=== PATIENT | female | born 1965 | race Caucasian/White ===

== ENCOUNTER → 2019-12-10 15:18 | Outpatient (BNVA) | payer SELFPAY | PROVIDERS: Visit Provider Nurse Practitioner | DX: S69.91XA Unspecified injury of right wrist, hand and finger(s), initial encounter (principal); S62.396A Other fracture of fifth metacarpal bone, right hand, initial encounter for closed fracture; W01.0XXA Fall on same level from slipping, tripping and stumbling without subsequent striking against object, initial encounter | CPT/HCPCS: 73130 ==

== ENCOUNTER 2019-12-20 14:17 | Emergency (ER) | payer SELFPAY ==
[2019-12-20 14:26] VITALS: BMI 37.2
--- NOTE | 2019-12-20 14:31 | W.ED.EXTPRO ---
HPI - Extremity Problem General: Chief complaint: Extremity Injury, Upper Stated complaint: right hand/arm pain Time Seen by Provider: 12/20/19 14:29 Source: patient Mode of arrival: ambulatory Limitations: no limitations History of Present Illness: HPI Narrative: Patient comes in today for complaints of fracture to the proximal fifth metacarpal. Patient reports injury occurred on . Patient states that she had slipped and fell and caught herself injuring her hand. Patient was seen at urgent care and diagnosed with no fracture and thought she was going to get a follow-up appointment on after but never received a call. Patient came in today due to no contact from the urgent care office. Patient appears well. Patient appears in no acute distress. Review of Systems General: Reports: 10 or more systems reviewed and unremarkable except in HPI and below Musc: Reports: extremity pain (right hand) [facility] ED PFSH: Medical History (Updated 12/20/19 @ 15:23 by JOSE Jacob) Major depressive disorder, recurrent, in partial remission Social History (Updated 12/10/19 @ 15:09 by Joie Barksdale LPN) Smoking and tobacco status: never smoked Physical Exam Const: COMMON NORMALS: no acute distress and patient oriented x3 GENERAL APPEARANCE: cooperative HENMT: COMMON NORMALS: normocephalic and Normal external nose present HEAD & SCALP: normal to inspection and normocephalic NOSE: Normal external nose present Eye: GENERAL EYE: appearance normal, both eyes and all related structures Neck/C-Spine: COMMON NORMALS: full ROM Chest: COMMONS NORMALS: normal inspection of the chest Resp: COMMON NORMALS: normal respiratory effort EFFORT & INSPECTION: Yes able to speak in complete sentences Cardio: COMMON NORMALS: regular rate and regular rhythm RATE: regular rate RHYTHM: regular rhythm GI: COMMON NORMALS: non-tender Back/Pelvis: COMMON NORMALS: thoracic and lumbar spine normal to inspection Extremity: NARRATIVE EXTREMITY EXAM: Mild ecchymosis and swelling to the right dorsal hand. Patient has tenderness and swelling to the right proximal fifth metacarpal area, patient also has some mid forearm tenderness. Distal pulses and cap refill are intact. Neuro: COMMON NORMALS: patient oriented x3 and moves all extremities Psych: COMMON NORMALS: mental status grossly normal and cooperative Skin: COMMON NORMALS: no rashes or lesions noted GENERAL SKIN EXAM: no rashes or lesions noted Course Vital Signs: Vital signs: Vital Signs Temperature 98.6 F 12/20/19 14:35 Pulse Rate 96 12/20/19 14:35 Respiratory Rate 18 12/20/19 14:35 Blood Pressure 151/99 12/20/19 14:35 Pulse Oximetry 97 12/20/19 14:35 MDM - Extremity (Nontraumatic) MDM Narrative: Medical decision making narrative: Patient came in for reevaluation of fracture to the right hand. Patient had a splint placed on after a slip and fall injury. Exam notes normal cap refill to the distal fingers. Normal sensation. Some mild swelling and ecchymosis to the dorsal hand. X-ray of the extremity noted a fracture of the fifth metacarpal at the base. X-rays of the forearm were done due to the patient's complaint of pain in the mid forearm area no signs of fracture are noted there. Differential diagnosis included fracture, contusion, sprain. Reviewed exam with patient recommended continue splint and sling for comfort. Use Tylenol and ibuprofen for pain. Case management was consulted for referral to the orthopedics office. Orthopedics was contacted and they will contact the patient for appointment at the next available. Discharge Plan Discharge Patient Disposition: Home, Self-Care Clinical Impression: Other fracture of fifth metacarpal bone, right hand, initial encounter for closed fracture Condition: Stable Prescriptions: No Action fluoxetine [Prozac] 40 mg capsule 40 mg PO DAILY Qty: 30 RF: 2 Discharge Orders: Discharge Order (Routine); Ordered 12/20/19 Ordered By: Felipe Wolff Discharge Diet: Usual diet Discharge Activity: Increase activity as tolerated Patient Instructions: Hand Fracture (ED) Activity Restrictions/Additional Instructions: Keep splint clean and dry. Activity as tolerated. Use acetaminophen and ibuprofen for pain. Use ice or heat for further pain control. Follow-up with orthopedics. Case management has placed a referral and you should expect a call from the orthopedics office within the next 24 hours. If you do not receive a call by tomorrow afternoon contact the orthopedics office directly. Return to the ER for high fever or new concerns. Coding Level of Care Code ED Bankruptcy Legal Assistant for Christopher Fwjolene Exam Comprehensive
[2019-12-20 14:35] VITALS: BP 151/99; PULSE 96; RESP 18; TEMP 37; O2SAT 97
--- NOTE | 2019-12-20 14:36 | XR_ITS ---
WS: [id number] XR hand RT min 3V* [id number] REASON FOR EXAM: fracture FINDINGS: There is evidence of a fracture through the base of the fifth metacarpal. The distal interphalangeal joint suggest osteoarthritic changes. Review of the forearm shows a fracture of the proximal fifth metacarpal was present on that exam but not reported. XR/XR hand RT min 3V* [id number] IMPRESSION: Fracture base fifth metacarpal
--- NOTE | 2019-12-20 14:36 | XR_ITS ---
WS: [id number] XR forearm RT 2V [id number] REASON FOR EXAM: injury FINDINGS: The ulna and radius appear to be normal. There is no definite fractures or specific bone dyscrasias noted. There is no abnormal calcification or soft tissue masses. XR/XR forearm RT 2V [id number] IMPRESSION: Negative right forearm.
--- NOTE | 2019-12-20 15:47 | DCPLANNER ---
financial reporting manager was asked to schedule a follow up appointment for patient with ortho. financial reporting manager called the ortho clinic, spoke with Concetta, gave clinic patients information. financial reporting manager was told that patients information would be printed and reviewed. Clinic will call wrapper caser and patient with appointment information.
[2019-12-20 16:05] VITALS: BP 133/101; PULSE 78; RESP 16; O2SAT 98
--- NOTE | 2020-01-02 08:21 | DCPLANNER ---
sql manager called Pat at ortho to confirm that an appointment had been scheduled for patient. sql manager was told that an appointment had not been scheduled yet. Pat at the ortho clinic is looking into why an appointment has not been scheduled at this time, will speak with Lizette.
--- NOTE | 2020-01-02 15:34 | DCPLANNER ---
Patient had a follow up appointment scheduled for 01.02.20, patient did attend the appointment.
== END 2019-12-20 16:23 | disposition home or self-care (01) ==
LOC: ER 16:05
PROVIDERS: Emergency Provider Nurse Practitioner Family
DX: S62.396A Other fracture of fifth metacarpal bone, right hand, initial encounter for closed fracture (principal); W01.0XXA Fall on same level from slipping, tripping and stumbling without subsequent striking against object, initial encounter
CPT/HCPCS: 12345; 29125; 73090; 73130; 99282; 99283

== ENCOUNTER → 2020-01-02 15:24 | Outpatient (BNVA) | payer SELFPAY | PROVIDERS: Visit Provider Specialist | DX: S62.396A Other fracture of fifth metacarpal bone, right hand, initial encounter for closed fracture (principal); X58.XXXA Exposure to other specified factors, initial encounter | CPT/HCPCS: 73130 ==

== ENCOUNTER → 2020-01-16 15:07 | Outpatient (BNVA) | payer SELFPAY | PROVIDERS: Visit Provider Specialist | DX: S62.396A Other fracture of fifth metacarpal bone, right hand, initial encounter for closed fracture (principal); W19.XXXA Unspecified fall, initial encounter | CPT/HCPCS: 73130 ==

== ENCOUNTER → 2020-02-07 14:19 | Outpatient (BNVA) | payer SELFPAY | PROVIDERS: Visit Provider Specialist | DX: S62.396A Other fracture of fifth metacarpal bone, right hand, initial encounter for closed fracture (principal); X58.XXXA Exposure to other specified factors, initial encounter | CPT/HCPCS: 73130 ==

== ENCOUNTER → 2020-05-29 08:33 | Outpatient (BNVA) | payer OTHER, SELFPAY | PROVIDERS: Visit Provider Nurse Practitioner | DX: F33.41 Major depressive disorder, recurrent, in partial remission (principal) | CPT/HCPCS: 99213 ==

== ENCOUNTER 2020-06-30 11:19 | Outpatient (CLI) | payer OTHER, SELFPAY ==
--- NOTE | 2020-06-30 11:27 | MM_ITS ---
WS: [id number] Bilateral screening digital mammogram, 06/30/2020 Clinical Data: SCREENING Comparison: 05/07/2019, 05/23/2018, 04/20/2017, 04/08/2016. Findings: The breast parenchymal pattern shows heterogeneous density No spiculated masses or clustered calcific ations are seen. There are no secondary signs of carcinoma. There are lymph nodes in the right axilla . MM/[id number] Impression: 1. Negative bilateral mammogram unchanged. 2. Recommend annual screening mammograms. BIRADS: 1-Negative FOLLOW UP: 1 Year Follow-up The CAD photo checker was used.
== END 2020-06-30 11:20 | disposition home or self-care (01) ==
LOC: RADSHAW 11:22
PROVIDERS: Visit Provider Family Medicine
DX: Z12.31 Encounter for screening mammogram for malignant neoplasm of breast (principal)
CPT/HCPCS: 77067

== ENCOUNTER 2022-03-18 13:23 | Outpatient (CLI) | payer MEDICAID, SELFPAY ==
--- NOTE | 2022-03-18 13:29 | MM_ITS ---
WS: [id number] BILATERAL 3D TOMOSYNTHESIS DIGITAL SCREENING MAMMOGRAPHY WITH CAD CLINICAL INFORMATION: SCREENING HISTORY: Screening mammogram. No current complaints. COMPARISON: June 30, 2020 TECHNIQUE: Bilateral CC and MLO views. FINDINGS: The breasts are composed of heterogeneous fibroglandular density tissue, which can limit the detectio n of small underlying mass lesions. A few tiny incidental punctate calcifications. No suspicious mass , asymmetry, calcifications, or architectural distortion. No evidence of malignancy. MM/[place] [id number] IMPRESSION: BI-RADS: 2-Benign FOLLOW UP: 1 Year Follow-up Recommend return to annual screening mammography.
== END 2022-03-18 13:24 | disposition home or self-care (01) ==
PROVIDERS: PCP Family Medicine; Visit Provider Family Medicine
DX: Z12.31 Encounter for screening mammogram for malignant neoplasm of breast (principal)
CPT/HCPCS: 77063; 77067

== ENCOUNTER 2023-03-18 13:53 | Outpatient (CLI) | payer MEDICAID, SELFPAY ==
--- NOTE | 2023-03-18 14:11 | MM_ITS ---
WS: [id number] BILATERAL 3D TOMOSYNTHESIS DIGITAL SCREENING MAMMOGRAPHY WITH CAD CLINICAL INFORMATION: SCREENING HISTORY: Screening mammogram. LEFT breast pain and soreness COMPARISON: 2021 TECHNIQUE: Bilateral CC and MLO views. FINDINGS: The breasts are composed of heterogeneous fibroglandular density tissue, which can limit the detectio n of small underlying mass lesions. No suspicious mass, asymmetry, calcifications, or architectural d istortion. No evidence of malignancy. Punctate calcification LEFT breast. IMPRESSION: MM/[place] [id number] BI-RADS: 2-Benign FOLLOW UP: 1 Year Follow-up Recommend return to annual screening mammography.
== END 2023-03-18 13:54 | disposition home or self-care (01) ==
LOC: RAD 13:56 → MOBLMAM 14:10
PROVIDERS: PCP Family Medicine; Visit Provider Family Medicine
DX: Z12.31 Encounter for screening mammogram for malignant neoplasm of breast (principal)
CPT/HCPCS: 77063; 77067

== ENCOUNTER 2023-12-20 04:38 | Emergency (ER) | payer OTHER, MEDICAID, SELFPAY ==
[2023-12-20] VITALS (7 sets, daily range): BP systolic 126–162; BP diastolic 70–106; PULSE 65–73; RESP 16–20; TEMP 36.6; O2SAT 96–99; BMI 35.4
--- NOTE | 2023-12-20 04:43 | XRR_ITS ---
PROCEDURE INFORMATION: Exam: XR Chest Exam date and time: 12/20/2023 4:55 AM Age: 58 years old Clinical indication: Shortness of breath TECHNIQUE: Imaging protocol: Radiologic exam of the chest. Views: 1 view. COMPARISON: CR XR chest 1V [id number] 03/16/2017 1:38 PM FINDINGS: Lungs: Unremarkable. No consolidation. Pleural spaces: Unremarkable. No pleural effusion. No pneumothorax. Heart/Mediastinum: Unremarkable. No cardiomegaly. Bones/joints: Unremarkable. XR/XR chest 1V portable [id number] IMPRESSION: No acute findings.
--- NOTE | 2023-12-20 04:43 | ECG_ITS ---
[facility] Test Date: 2023-12-20 Pat Name: Cheryl San Department: Room: Gender: Female Surgical Consultant: : 1965 Requested By: Karine Santiago Order Number: [id number] Melissa MD: Trevor Medina M.D. Measurements Intervals [place] Rate: 60 P: 68 AR: 126 QRS: 60 QRSD: 86 T: 63 QT: 412 QTc: 413 Interpretive Statements SINUS RHYTHM Compared to ECG 03/16/2017 13:23:05 No significant changes Electronically Signed On 12-20-2023 7:24:25 CDT by Trevor Medina M.D. [email or web address]
[2023-12-20 05:08] LABS: Basophils # 0.1 10^3/uL (0.0-0.1); Basophils % 0.8 %; Eosinophils # 0.3 10^3/uL (0.0-0.8); Hematocrit 45.2 % (36-47); Lymphocytes # 2.1 10^3/uL (0.8-4.8); Lymphocytes % 24.6 %; Mean Corpuscular HGB Conc 33.6 g/dL (30-55); Mean Corpuscular Volume 92.2 fl (85-98); Mean Platelet Volume 11.3 fL (7.4-10.4); Monocytes # 0.8 10^3/uL (0.2-0.9); Monocytes % 9.9 %; Neutrophils # 5.06 10^3/uL (1.8-7.7); Neutrophils % 60.3 %; Nucleated Red Blood Cells % 0 %; Platelet Count 299 10^3/cmm (157-399); Red Cell Distribution Width 13.3 % (12.1-15.1)
--- NOTE | 2023-12-20 05:08 | ED_ITS ---
Documented by User: Karine Crowell MD 12/20/23 05:15 HPI - Abdominal Pain 2 General: Chief Complaint: Abdominal Pain Stated Complaint: flank pain Time Seen by Provider: 12/20/23 04:40 History of Present Illness: 58-year-old female who does not currentl y take any medications for chronic illnesses who presents the emergency room with bilateral lower chest/flank pain that radiates around to the front of her chest. She has had increased cough and some shortness of breath. Some sputum production. Says it hurts when she breathes and when she moves. This is been present for a couple of days now. No known fevers. No nausea or vomiting. No dysuria. No lower extremity swelling. No altered mental status. No focal motor deficits. Review of Systems 2 Narrative: Constitutional symptoms: Negative except as documented in HPI. Skin symptoms: Negative except as documented in HPI. Eye symptoms: Negative except as documented in HPI. ENMT symptoms: Negative except as documented in HPI. Respiratory symptoms: Negative except as documented in HPI. Cardiovascular symptoms: Negative except as documented in HPI. Gastrointestinal symptoms: Negative except as documented in HPI. Genitourinary symptoms: Negative except as documented in HPI. Musculoskeletal symptoms: Negative except as documented in HPI. Neurologic symptoms: Negative except as documented in HPI. Psychiatric symptoms: Negative except as documented in HPI. Endocrine symptoms: Negative except as documented in HPI. PFSH ED 2 PFSH: Medical History (Updated 12/20/23 @ 08:18 by Ethan Biswas DO) Major depressive disorder, recurrent, in partial remission Surgical History (Updated 02/08/20 @ 07:11 by Chen Paez MD) History of partial hysterectomy Social History Smoking and tobacco/nicotine status: never used tobacco/nicotine Physical Exam 2 Narrative: EXAM NARRATIVE: General: Alert, no acute distress. Skin: Warm, dry. Head: Normocephalic, atraumatic. Neck: Supple, trachea midline. Eye: Extraocular movements are intact. Ears, nose, mouth and throat: mucosa moist. Cardiovascular: Regular, Normal peripheral perfusion. Respiratory: Lungs are clear to auscultation, respirations are non-labored, breath sounds are equal, Symmetrical chest wall expansion. Gastrointestinal: Soft, Nontender, Non distended, Normal bowel sounds. Musculoskeletal: Normal ROM, no deformity. Neurological: Alert and oriented, No focal neurological deficit observed. Psychiatric: Cooperative, appropriate mood & affect. Course 2 Vital Signs: Vital signs: Vital Signs Temperature 97.9 F 12/20/23 04:40 Pulse Rate 65 12/20/23 06:35 Respiratory Rate 16 12/20/23 06:35 Blood Pressure 138/89 12/20/23 06:35 Pulse Oximetry 98 12/20/23 06:35 Oxygen Delivery Me thod Room Air 12/20/23 06:35 MDM - Abdominal Pain Medical Decision Making Differential diagnosis for patient with chest pain includes but is not limited to and based on the above HPI, review of systems and physical exam: Pneumonia. unstable angina. angina. Acute coronary syndrome / PA. Pulmonary embolism. Costochondritis / musculoskeletal. Pleurisy. Pericarditis. Esophageal spasm. Pancreatis. Cholecystitis. Workup: Lab work, chest X-ray and EKG ordered to evaluate, rule in and rule out above pathologies. EKG: Time 4:45 AM rate 60. Normal sinus rhythm, No ST-T changes, no ectopy, normal RI & QRS intervals, This was reviewed and interpreted by myself the ER physician at 4:50 AM Chest x-ray: No acute process. No infiltrate. No pneumothorax. No cardiomegaly. This was reviewed and interpreted by myself the ER physician. Lab Review: Laboratory results were reviewed and interpreted by myself the emergency room physician. I reviewed the patient's medical record. Reexamination: Lab Data 12/20/23 04:56 12/20/23 04:56 Labs/Radiology: Radiology Impressions Chest X-Ray 12/20/23 04:43 IMPRESSION: No acute findings. Laboratory Results WBC 8.40 10^3/uL (3.29-11.43) 12/20/23 04:56 RBC 4.90 10^6/uL (3.85-5.65) 12/20/23 04:56 Hgb 15.20 g/dL (11.27-16.99) 12/20/23 04:56 Hct 45.2 % (36-47) 12/20/23 04:56 MCV 92.2 fl (85-98) 12/20/23 04:56 MCH 31.0 pg (27-33) 12/20/23 04:56 MCHC 33.6 g/dL (30-55) 12/20/23 04:56 RDW 13.3 % (12.1-15.1) 12/20/23 04:56 Plt Count 299 10^3/cmm (157-399) 12/20/23 04:56 MPV 11.3 fL (7.4-10.4) H 12/20/23 04:56 Neut % (Auto) 60.3 % 12/20/23 04:56 Lymph % (Auto) 24.6 % 12/20/23 04:56 [place] % (Auto) 9.9 % 12/20/23 04:56 Eos % (Auto) 4.0 % 12/20/23 04:56 Baso % (Auto) 0.8 % 12/20/23 04:56 Neut # (Auto) 5.06 10^3/uL (1.8-7.7) 12/20/23 04:56 Lymph # (Auto) 2.1 10^3/uL (0.8-4.8) 12/20/23 04:56 [place] # (Auto) 0.8 10^3/uL (0.2-0.9) 12/20/23 04:56 Eos # (Auto) 0.3 10^3/uL (0.0-0.8) 12/20/23 04:56 Baso # (Auto) 0.1 10^3/uL (0.0-0.1) 12/20/23 04:56 Nucleated RBC % (auto) 0 % 12/20/23 04:56 Nucleated RBCs # 0.0 /100WBC 12/20/23 04:56 Sodium 140 mmol/L (136-145) 12/20/23 04:56 Potassium 4.3 mmol/L (3.5-5.1) 12/20/23 04:56 Chloride 103 mmol/L (98-107) 12/20/23 04:56 Carbon Dioxide 22 mmol/L (22-29) 12/20/23 04:56 Anion Gap 19.3 (5-19) H 12/20/23 04:56 BUN 18 mg/dL (6-20) 12/20/23 04:56 Creatinine 0.9 mg/dL (0.5-0.9) 12/20/23 04:56 GFR Calculation 64.1 mL/min (90-130) L 12/20/23 04:56 Glucose 108 mg/dL (65-115) 12/20/23 04:56 Calculated Osmolality 292 mOsm/kg (285-295) 12/20/23 04:56 Calcium 9.3 mg/dL (8.5-10.5) 12/20/23 04:56 Total Bilirubin 0.3 mg/dL (0.15-1.2) 12/20/23 04:56 AST 19 U/L (0-32) 12/20/23 04:56 ALT 23 U/L (0-33) 12/20/23 04:56 Alkaline Phosphatase 88 U/L (35-105) 12/20/23 04:56 Troponin T Baseline < 6 ng/L (0-10) 12/20/23 04:56 Troponin T 120 Minute 6.00 ng/L (0-10) 12/20/23 07:01 Delta Troponin T 0.85403 ABS# (0-10) 12/20/23 07:01 C-Reactive Protein 3.1 mg/L (0.0-4.9) 12/20/23 04:56 Total Protein 6.9 g/dL (6.6-8.7) 12/20/23 04:56 Albumin 4.3 g/dL (3.5-5.2) 12/20/23 04:56 Globulin 2.6 g/dL (1.3-4.6) 12/20/23 04:56 Urine Color Yellow (Yellow) 12/20/23 06:29 Urine Appearance Clear (CLEAR) 12/20/23 06:29 Urine pH 7 (5-7) 12/20/23 06:29 Ur Specific [place] 1.015 (1.005-1.030) 12/20/23 06:29 Urine Protein Neg (Negative) 12/20/23 06:29 Urine Glucose (UA) Norm (Normal) 12/20/23 06:29 Urine Ketones Negative (Negative) 12/20/23 06:29 Urine Blood Neg (Negative) 12/20/23 06:29 Urine Nitrate Negative (Negative) 12/20/23 06:29 Urine Bilirubin Neg (Negative) 12/20/23 06:29 Urine Urobilinogen Neg mg/dL (Negative) 12/20/23 06:29 Ur Leukocyte Esterase Negative (Negative) 12/20/23 06:29 Urine RBC 0-4 /hpf (0-2) H 12/20/23 06:29 Urine WBC 0-4 /hpf (0-5) H 12/20/23 06:29 Ur Squamous Epith Cells 0-4 /hpf (0-5) H 12/20/23 06:29 Amorphous Sediment Not Reportable 12/20/23 06:29 Urine Bacteria Trace /hpf (NONE) 12/20/23 06:29 Urine Mucus Trace /hpf 12/20/23 06:29 Influenza Type A Ag Negative (Negative) 12/20/23 05:17 Influenza Type B Ag Negative (Negative) 12/20/23 05:17 SARS-CoV-2 Ag (Rapid) negative (Negative) 12/20/23 05:17 Discharge Plan Discharge Patient Disposition: Home Clinical Impression: Post traumatic stress disorder Condition: Stable Prescriptions: No Action (DME) TKO splint See Rx Instructions .Route .MEDSUPPLY Qty: 1 0RF Rx Instructions: As directed multivitamin Tablet 1 tab PO QAM Discharge Orders: Discharge ED (Routine); Ordered 12/20/23 Ordered By: Ethan Biswas Referrals: Lux Richardson MD [Primary Care Provider] - Patient Instructions: Opioid Safety, Pain Management Activity Restrictions/Additional Instructions: As we discussed while you are in the emergency department there were no findings today that suggest a serious cause of your physical symptoms. There is certainly the suggestion that some of the physical symptoms may be a manifestation of your stress. However many times early in a disease progression symptoms are rather vague and therefore if you develop worsening or persistent or other concerning symptoms at any time you are welcome to return to the emergency department for reevaluation. Coding Level of Care Code ED Cotton Wringer for Chg Fwd Documented by User: Ethan Biswas DO 12/20/23 08:19 HPI - Abdominal Pain 2 General: Chief Complaint: Abdominal Pain Stated Complaint: flank pain Time Seen by Provider: 12/20/23 04:40 PFSH ED 2 PFS: Medical History (Updated 12/20/23 @ 08:18 by Ethan Biswas DO) Major depressive disorder, recurrent, in partial remission Surgical History (Updated 02/08/20 @ 07:11 by Chen Paez MD) History of partial hysterectomy Social History Smoking and tobacco/nicotine status: never used tobacco/nicotine Course 2 Reevaluation(s): Reevaluation #1: I assumed care from Dr. Ferrell for disposition. This patient had presented to the emergency department earlier this morning because of subjective shortness of breath sensation. She states that preceding this she had had some cough and congestion but that has subsequently improved. She also relates she has a history of posttraumatic stress disorder and she is recently had to become involved within the legal system regarding the case that initially led to her PTSD. She also has a history of anxiety. She denies any fevers or chills chest pain with exertion etc. She does not have any known history of cardiopulmonary disease. She is a non-smoker no asthma history. No risk factors for thromboembolic disease. She states the symptoms bother her at night and she feels like she cannot get her breath at night but does not really have any symptoms during the day. She is alert and appears to be in no acute distress. Examination reveals some exacerbation of symptoms with deep inspiration and movement of her trunk. Her lungs are clear. Her cardiovascular Miguel reveals peripheral pulses palpable equal no murmur. Regular rhythm. Abdomen is soft and her extremities reveal no edema or calf tenderness. Will review her ancillary studies to ensure that there is no evidence of increased risk of serious etiologies to her current presentation. Certainly given history and current presentation suggest possible PTSD contributing to her current presentation. Time: 06:57 Reevaluation #2: Patient's ancillary studies all returned which were all reassuring. She was reevaluated with any new or focal findings on her repeat evaluation. No evidence at this time to suggest a ongoing emergency medical condition. Certainly we revisited possible med physical manifestations of her PTSD since that is been more in the forefront of her mind. We also discussed return precautions in detail. Both she and her spouse voiced understanding and were appreciative. Time: 08:16 Vital Signs: Vital signs: Vital Signs Temperature 97.9 F 12/20/23 04:40 Pulse Rate 65 12/20/23 06:35 Respiratory Rate 16 12/20/23 06:35 Blood Pressure 138/89 12/20/23 06:35 Pulse Oximetry 98 12/20/23 06:35 Oxygen Delivery Me thod Room Air 12/20/23 06:35 MDM - Abdominal Pain Medical Decision Making Differential diagnosis for patient with chest pain includes but is not limited to and based on the above HPI, review of systems and physical exam: Pneumonia. unstable angina. angina. Acute coronary syndrome / PA. Pulmonary embolism. Costochondritis / musculoskeletal. Pleurisy. Pericarditis. Esophageal spasm. Pancreatis. Cholecystitis. Workup: Lab work, chest X-ray and EKG ordered to evaluate, rule in and rule out above pathologies. EKG: Time 4:45 AM rate 60. Normal sinus rhythm, No ST-T changes, no ectopy, normal RI & QRS intervals, This was reviewed and interpreted by myself the ER physician at 4:50 AM Chest x-ray: No acute process. No infiltrate. No pneumothorax. No cardiomegaly. This was reviewed and interpreted by myself the ER physician. Lab Review: Laboratory results were reviewed and interpreted by myself the emergency room physician. I reviewed the patient's medical record. Reexamination: I reevaluated the patient after ancillary studies and no evidence of an ongoing emergency medical condition. Does not suggest such things as pneumonia pneumothorax, urinary tract infection, renal lithiasis etc. Electrocardiogram and troponins are reassuring making ACS highly unlikely. Certainly would suggest a manifestation of her PTSD but again no clear evidence of other concerning findings which were shared with the patient. Lab Data I reviewed the patient's lab results. 12/20/23 04:56 12/20/23 04:56 Labs/Radiology: Radiology Impressions Chest X-Ray 12/20/23 04:43 IMPRESSION: No acute findings. Laboratory Results WBC 8.40 10^3/uL (3.29-11.43) 12/20/23 04:56 RBC 4.90 10^6/uL (3.85-5.65) 12/20/23 04:56 Hgb 15.20 g/dL (11.27-16.99) 12/20/23 04:56 Hct 45.2 % (36-47) 12/20/23 04:56 MCV 92.2 fl (85-98) 12/20/23 04:56 MCH 31.0 pg (27-33) 12/20/23 04:56 MCHC 33.6 g/dL (30-55) 12/20/23 04:56 RDW 13.3 % (12.1-15.1) 12/20/23 04:56 Plt Count 299 10^3/cmm (157-399) 12/20/23 04:56 MPV 11.3 fL (7.4-10.4) H 12/20/23 04:56 Neut % (Auto) 60.3 % 12/20/23 04:56 Lymph % (Auto) 24.6 % 12/20/23 04:56 [place] % (Auto) 9.9 % 12/20/23 04:56 Eos % (Auto) 4.0 % 12/20/23 04:56 Baso % (Auto) 0.8 % 12/20/23 04:56 Neut # (Auto) 5.06 10^3/uL (1.8-7.7) 12/20/23 04:56 Lymph # (Auto) 2.1 10^3/uL (0.8-4.8) 12/20/23 04:56 [place] # (Auto) 0.8 10^3/uL (0.2-0.9) 12/20/23 04:56 Eos # (Auto) 0.3 10^3/uL (0.0-0.8) 12/20/23 04:56 Baso # (Auto) 0.1 10^3/uL (0.0-0.1) 12/20/23 04:56 Nucleated RBC % (auto) 0 % 12/20/23 04:56 Nucleated RBCs # 0.0 /100WBC 12/20/23 04:56 Sodium 140 mmol/L (136-145) 12/20/23 04:56 Potassium 4.3 mmol/L (3.5-5.1) 12/20/23 04:56 Chloride 103 mmol/L (98-107) 12/20/23 04:56 Carbon Dioxide 22 mmol/L (22-29) 12/20/23 04:56 Anion Gap 19.3 (5-19) H 12/20/23 04:56 BUN 18 mg/dL (6-20) 12/20/23 04:56 Creatinine 0.9 mg/dL (0.5-0.9) 12/20/23 04:56 GFR Calculation 64.1 mL/min (90-130) L 12/20/23 04:56 Glucose 108 mg/dL (65-115) 12/20/23 04:56 Calculated Osmolality 292 mOsm/kg (285-295) 12/20/23 04:56 Calcium 9.3 mg/dL (8.5-10.5) 12/20/23 04:56 Total Bilirubin 0.3 mg/dL (0.15-1.2) 12/20/23 04:56 AST 19 U/L (0-32) 12/20/23 04:56 ALT 23 U/L (0-33) 12/20/23 04:56 Alkaline Phosphatase 88 U/L (35-105) 12/20/23 04:56 Troponin T Baseline < 6 ng/L (0-10) 12/20/23 04:56 Troponin T 120 Minute 6.00 ng/L (0-10) 12/20/23 07:01 Delta Troponin T 0.51230 ABS# (0-10) 12/20/23 07:01 C-Reactive Protein 3.1 mg/L (0.0-4.9) 12/20/23 04:56 Total Protein 6.9 g/dL (6.6-8.7) 12/20/23 04:56 Albumin 4.3 g/dL (3.5-5.2) 12/20/23 04:56 Globulin 2.6 g/dL (1.3-4.6) 12/20/23 04:56 Urine Color Yellow (Yellow) 12/20/23 06:29 Urine Appearance Clear (CLEAR) 12/20/23 06:29 Urine pH 7 (5-7) 12/20/23 06:29 Ur Specific [place] 1.015 (1.005-1.030) 12/20/23 06:29 Urine Protein Neg (Negative) 12/20/23 06:29 Urine Glucose (UA) Norm (Normal) 12/20/23 06:29 Urine Ketones Negative (Negative) 12/20/23 06:29 Urine Blood Neg (Negative) 12/20/23 06:29 Urine Nitrate Negative (Negative) 12/20/23 06:29 Urine Bilirubin Neg (Negative) 12/20/23 06:29 Urine Urobilinogen Neg mg/dL (Negative) 12/20/23 06:29 Ur Leukocyte Esterase Negative (Negative) 12/20/23 06:29 Urine RBC 0-4 /hpf (0-2) H 12/20/23 06:29 Urine WBC 0-4 /hpf (0-5) H 12/20/23 06:29 Ur Squamous Epith Cells 0-4 /hpf (0-5) H 12/20/23 06:29 Amorphous Sediment Not Reportable 12/20/23 06:29 Urine Bacteria Trace /hpf (NONE) 12/20/23 06:29 Urine Mucus Trace /hpf 12/20/23 06:29 Influenza Type A Ag Negative (Negative) 12/20/23 05:17 Influenza Type B Ag Negative (Negative) 12/20/23 05:17 SARS-CoV-2 Ag (Rapid) negative (Negative) 12/20/23 05:17 All radiology interpretation(s) finalized by discharge Discharge Plan Discharge Patient Disposition: Home Clinical Impression: Post traumatic stress disorder Condition: Stable Prescriptions: No Action (DME) TKO splint See Rx Instructions .Route .MEDSUPPLY Qty: 1 0RF Rx Instructions: As directed multivitamin Tablet 1 tab PO QAM Discharge Orders: Discharge ED (Routine); Ordered 12/20/23 Ordered By: Ethan Biswas Referrals: Lux Richardson MD [Primary Care Provider] - Patient Instructions: Opioid Safety, Pain Management Activity Restrictions/Additional Instructions: As we discussed while you are in the emergency department there were no findings today that suggest a serious cause of your physical symptoms. There is certainly the suggestion that some of the physical symptoms may be a manifestation of your stress. However many times early in a disease progression symptoms are rather vague and therefore if you develop worsening or persistent or other concerning symptoms at any time you are welcome to return to the emergency department for reevaluation. Coding Level of Care Code ED Cotton Wringer for Christopher Ibrahim
[2023-12-20 05:26] LABS: Troponin(5th) Baseline < 6 ng/L (0-10)
[2023-12-20 05:29] LABS: Alanine Aminotransferase 23 U/L (0-33); Albumin Level 4.3 g/dL (3.5-5.2); Alkaline Phosphatase 88 U/L (35-105); Anion Gap 19.3 (5-19); Aspartate Amino Transferase 19 U/L (0-32); Blood Urea Nitrogen 18 mg/dL (6-20); C Reactive Protein 3.1 mg/L (0.0-4.9); Calcium 9.3 mg/dL (8.5-10.5); Carbon Dioxide 22 mmol/L (22-29); Chloride 103 mmol/L (98-107); Creatinine Clr Calc Pharmacy 71.9602; Globulin 2.6 g/dL (1.3-4.6); Glomerular Filtration Rate 64.1 mL/min (90-130); Glucose 108 mg/dL (65-115); Osmolality Calculated 292 mOsm/kg (285-295); Potassium 4.3 mmol/L (3.5-5.1); Sodium 140 mmol/L (136-145); Total Bilirubin 0.3 mg/dL (0.15-1.2); Total Protein 6.9 g/dL (6.6-8.7)
[2023-12-20] MEDS: ketorolac 30 mg/mL INJ IVP (05:35)
[2023-12-20] MEDS: ondansetron 2 mg/ML SDV 2 mL 4 MG IVP (05:35)
[2023-12-20] MEDS: dexamethasone 10 mg/mL INJ IVP (05:35)
[2023-12-20 05:52] LABS: SARS Covid-2 Antigen negative (Negative)
[2023-12-20 05:53] LABS: Influenza A by IFA Negative (Negative); Influenza B by IFA Negative (Negative)
[2023-12-20 07:42] LABS: Troponin 5 2HR Delta 0.00001 ABS# (0-10)
[2023-12-20 08:00] LABS: Add Urine Culture? No; Bacteria Urine TRACE /hpf; Bilirubin Urine Neg (Negative); Blood Urine Neg (Negative); Glucose Urine UA Norm (Normal); Ketones Urine Negative (Negative); Leukocyte Esterase Urine Negative (Negative); Mucus Urine TRACE /hpf; Nitrate Urine Negative (Negative); Protein Urine Neg (Negative); RBC Urine 0-4 /hpf (0-2); Specific Gravity, Urine 1.015 (1.005-1.030); Squamous Epithelial Cell Urine 0-4 /hpf (0-5); Urine Appearance Clear (CLEAR); Urine Color Yellow (Yellow); Urobilinogen Urine Neg (Negative); WBC Urine 0-4 /hpf (0-5); pH Urine 7 (5-7)
== END 2023-12-20 08:36 | disposition home or self-care (01) ==
PROVIDERS: Emergency Provider Emergency Medicine; PCP Family Medicine
DX: F43.10 Post-traumatic stress disorder, unspecified (principal); Z11.52 Encounter for screening for COVID-19
CPT/HCPCS: 36415; 71045; 80053; 81001; 84484; 85025; 86140; 87040; 87426; 87804; 93005; 96374; 96375; 99285; J1100; J1885; J2405

== ENCOUNTER → 2025-03-05 13:19 | Outpatient (BNVA) | payer MEDICAID, SELFPAY | PROVIDERS: PCP Family Medicine; Visit Provider Podiatrist Foot & Ankle Surgery | DX: M76.61 Achilles tendinitis, right leg (principal); M76.62 Achilles tendinitis, left leg; L60.3 Nail dystrophy | CPT/HCPCS: 99204 ==

== ENCOUNTER → 2025-04-16 13:56 | Outpatient (BNVA) | payer MEDICAID, SELFPAY | PROVIDERS: PCP Family Medicine; Visit Provider Podiatrist Foot & Ankle Surgery | DX: M76.61 Achilles tendinitis, right leg (principal); M76.62 Achilles tendinitis, left leg; L60.3 Nail dystrophy | CPT/HCPCS: 99213 ==